=== PATIENT | female | born 1945 | race Caucasian/White ===

== ENCOUNTER 2019-03-14 09:47 | Inpatient (IN) ==
[2019-03-14] MEDS ORDERED: Albuterol 2.5 MG/3 ML NEBULIZER IH ONE (10:18)
[2019-03-14] MEDS ORDERED: CeFAZolin Syr 2,000MG/20 ML 2,000 MG/20 ML SYRINGE IVPB ONE (10:18)
[2019-03-14] MEDS ORDERED: diazePAM 5 MG TABLET PO ONE (10:29)
[2019-03-14] MEDS ORDERED: Pregabalin 75 MG CAPSULE PO ONE (10:30)
[2019-03-14] MEDS ORDERED: Ringers Solution, Lactated 1,000 ML IVC SCH ×2 (10:30→16:09)
[2019-03-14] MEDS ORDERED: Acetaminophen IV 1,000 MG/100 ML INFUS..BTL IVPB ONE (10:31)
[2019-03-14] MEDS ORDERED: Celecoxib 100 MG CAPSULE PO ONE (10:31)
--- NOTE | 2019-03-14 10:52 | Anesthesia Evaluation PreOp ---
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: Denies Any Significant HX Other Medical History: Other (Arthritis) Anesthesia History: No Prior Anesthetic Complications : No Alcohol Use: none Drug use: none Medications and Allergies Allergy/AdvReac Type Severity Reaction Status Date / Time tetracycline Allergy Itching Unverified 03/11/19 12:30 tramadol Allergy Gastrointestinal Unverified 03/11/19 12:30 Upset - Meds/Allergy Pre-op Review Medications Reviewed: Yes Allergies Reviewed: Yes Beta Blockers on Current Med List: No Anesthesia Results - Labs Laboratory Tests 02/26/19 02/26/19 10:41 10:41 Hgb 12.8 Hct 38.3 Plt Count 337 Sodium 139 Potassium 3.9 BUN 22 Creatinine 0.51 L - Imaging EKG: report reviewed (SR short AK) Anesthesia Exam O2 Sat Height 1.52 m Weight 49.895 kg O2 Sat by Pulse Oximetry 100 Vital Signs Temp Pulse Resp BP Pulse Ox 98.6 F 84 18 152/79 100 03/14/19 10:12 03/14/19 10:12 03/14/19 10:12 03/14/19 10:12 03/14/19 10:12 Height: 5'0 Weight: 110 lbs NPO (# of Hours): MN Pain Scale: 0 - HEENT Pupil (Motor): Pupils equal, EOMI Mallampati: II Denture Type: Upper: Complete (dentures) Oral Opening: Greater than 3 - 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
--- NOTE | 2019-03-14 11:53 | History & Physical Report ---
Date of Encounter: 03/14/19 Time of Encounter: 11:53 24 Hour HP Update - Instructions Instructions: If the History and Physical is less than 30 days old and was completed prior to A.M. admission and or procedure and has NOT been updated on calendar day of procedure please complete this update prior to performing procedure. - Update Patient reports changes in Medical Condition: No Changes in examination, assessment, or condition: No Changes in Medication: No Preop tests/diagnostics Reviewed: Yes Surgery Remains Indicated: Yes Consent for Planned Operative Procedure(s) Verified: Yes - Pre-Operative Checklist Preoperative Checklist Indicated: No Prophylactic Antibiotic Ordered: Yes Is VTE Prophylaxis Indicated?: Yes
--- NOTE | 2019-03-14 11:55 | Discharge Summary ---
Orders not resulted at time of discharge: Pending orders 03/14/19 11:54 XR hip complete RT [XR] Routine Hemoglobin and Hematocrit [HEME] Routine Date of Encounter: 03/22/19 Time of Encounter: 15:47 - Discharge Diagnosis (1) Hypertension Priority: Secondary Status: Chronic Qualifiers: Hypertension type: unspecified Qualified Code(s): I10 - Essential (primary) hypertension (2) Hyperlipidemia Priority: Secondary Status: Chronic Qualifiers: Hyperlipidemia type: unspecified Qualified Code(s): E78.5 - Hyperlipidemia, unspecified (3) Tobacco use Priority: Secondary Status: Chronic (4) Arthritis of right hip Priority: Primary Status: Chronic (5) Status post total hip replacement, right Priority: Primary Status: Acute - Hospital Course Hospital course: Ms. Higgins is a 74 year old female The patient had an uneventful postoperative course. They received antibiotics and physical therapy and were discharged in stable condition. There will follow-up in the office in 2 weeks. - Time Spent with Patient Total time spent providing and/or coordinating discharge services: - Discharge Medications Prescriptions: New Aspirin Enteric Coated [Aspirin EC] 162 mg PO BID #20 tablet.dr Elena Farrar Lisinopril [Zestril] 5 mg PO DAILY hydroCHLOROthiazide [Hydrochlorothiazide] 25 mg PO DAILY Sertraline [Zoloft] 25 mg PO DAILY Meloxicam 15 mg PO DAILY Home Medications: Aspirin Enteric Coated [Aspirin EC] 162 mg PO BID #20 tablet. 03/14/19 [Rx] Lisinopril [Zestril] 5 mg PO DAILY 03/14/19 [History] Meloxicam 15 mg PO DAILY 03/14/19 [History] Sertraline [Zoloft] 25 mg PO DAILY 03/14/19 [History] hydroCHLOROthiazide [Hydrochlorothiazide] 25 mg PO DAILY 03/14/19 [History] Allergies/Adverse Reactions: Allergy/AdvReac Type Severity Reaction Status Date / Time tetracycline AdvReac Itching Verified 03/14/19 17:40 tramadol AdvReac Gastrointestinal Verified 03/14/19 17:40 Upset Primary care physician: Latoya Sage MD - Patient Status Disposition: Home, Self-Care - Discharge Instructions Follow Up With: Latoya Sage MD [Primary Care Provider] - Additional Instructions: Discharge Instructions: Total Hip Replacement Please call [facility] ([phone]), your Primary Care Physician, or report to the Emergency Room if you have any of the following symptoms: Nausea, vomiting, fever greater that 101.5, swelling, chest pain, shortness of breath, increased pain/redness/drainage/odor for your incision site, numbness/tingling, or any other concerning symptoms. ACTIVITY:Weight-bearing as tolerated for 8 weeks with hip dislocation precautions that physical therapy taught you. You may progress as tolerated under the guidance of your physical therapist. You do not need to sleep with a pillow between your legs. You can also seep on the operative side or on your stomach. Incentive Spirometer 10 times an hour. MEDICATIONS: Upon discharge resume your home medications. Take all the medications as prescribed. Take a stool softener if taking narcotic pain medications. Stool softeners are only effective if you drink enough fluids. Drink 6-8 glass of water or fluids a day, unless this is not allowed for another health problem. Despite using stool softeners, if you haven't had a bowel movement in 3 days, please switch to a gentle laxative. Gentle laxatives are sold over the counter. You should have a bowel movement within 24 hours, if not call the office. You will be discharged from the hospital with a prescription for pain medication. You are encouraged to decrease the use of narcotic pain medication as tolerated. Should you require a refill, please call the office. [facility] prescribes narcotic pain medication for only 4-6 weeks after surgery. If you require pain medication beyond this time period, you may be referred to your Primary Care Physician or to the Pain Clinic for further evaluation. Plan ahead for refills on pain medication as many narcotics either need to be picked up at the office or mailed. It is best to call 48-72 hours in advance of needing a prescription refill so you don't run out of medication. To help control the post-operative pain, you may take NSAIDs (Aleve,Advil, Motrin, ibuprofen, naprosyn) or Tylenol as prescribed on the bottle in addition to the pain medication. ANTICOAGULATION (blood thinners): Continue your Aspirin, Lovenox or Coumadin as prescribed to help prevent a blood clot in the leg or in the lungs. As long as your incision remains dry and you tolerate the NSAIDs (Aleve, Advil, Motrin, Ibuprofen, Naprosyn), it is OK to use the NSAIDS while you are taking your anticoagulation medication. Should your incision start to drain, stop the NSAID and contact our office. Common symptoms of blood clot in the legs include: localized pain, swelling, calf tenderness, redness or discoloration of the skin. Blood clot in the lung symptoms include: shortness of breath, rapid pulse, sweating, and chest pain that worsens with deep breathing, coughing up blood, lightheadedness, feelings of anxiety. If you experience any of these symptoms notify your physician immediately, go to the emergency room, or if having trouble breathing, call 911. WOUND CARE: Leave the dressing on for 7 to 10days. You may change the dressing if it is saturated greater than 50%. Do not get the dressing wet at anytime. Wash your hands with antibacterial soap, rinse and dry prior to any wound care. If you have etelvina the visiting nurse or rehab facility can remove the stapes 10-14 days after surgery and place steri-strips across the wound. Leave the steri-strips in place until they fall off on their own. You may let water from the shower run on top of the steri-strips. If you do not have a visiting nurse or rehab facility, you will need to return to the office at 10-14 days for the etelvina to be removed. If you have itching or redness around the dressing call the office. FOLLOW-UP: Please follow up with your surgeon in the orthopedic clinic in 6 weeks from the day of surgery. If you have etelvina that need to be removed, you will need to come back to the office in 10-14 days from the day of surgery.
[2019-03-14] MEDS ORDERED: Ethanol\\Acetic Acid\\Na Ace\\Ben 1,000 ML IRRIG.SOLN IR ONE (12:02)
[2019-03-14] MEDS ORDERED: Lidocaine -MPF 4% 5 ML AMPUL ONE (12:12)
[2019-03-14] MEDS ORDERED: Ondansetron 4 MG/2 ML VIAL ONE (12:12)
[2019-03-14] MEDS ORDERED: Dexamethasone 4 MG/ML VIAL ONE (12:12)
[2019-03-14] MEDS ORDERED: Lidocaine -MPF 2% 2 ML VIAL ONE (12:12)
[2019-03-14] MEDS ORDERED: *HR* Midazolam HCl 2 MG/2 ML VIAL ONE (12:12)
[2019-03-14] MEDS ORDERED: *HR* FentaNYL (PF) 100 MCG/2 ML VIAL ONE (12:12)
[2019-03-14] MEDS ORDERED: Propofol 500 MG/50 ML INFUS..BTL ONE ×2 (12:12→12:15)
[2019-03-14] MEDS ORDERED: *HR* OxyCODONE Immed Rel 5 MG TABLET PO PRN (12:25)
[2019-03-14] MEDS ORDERED: Ondansetron 4 MG/2 ML VIAL IVP ONE (12:25)
[2019-03-14] MEDS ORDERED: *HR* Promethazine 25 MG/ML VIAL IVP PRN ×2 (12:25→16:09)
--- NOTE | 2019-03-14 13:14 | Anesthesia Procedures ---
Date of Encounter: 03/14/19 Time of Encounter: 14:45 Procedures: Anesthesia - Epidural/Spinal Patient ID/Chart reviewed: Yes Patient examined: Yes Consent Obtained: Yes Supplemental Oxygen: Nasal Cannula Supplemental Oxygen Rate (L/min): 2 Sedation: Versed (mg): 2 Sedation: Fentanyl (mcg): 100 Site Prep: Aseptic Technique, Sterile prep and drape, Povidone-Iodine 1% Patient position: upright Local Anesthetic: Lidocaine 1% Amount of Local Anesthetic used: 3 Interspace Used: L4-L5 Blood: No CSF: Yes (spinal ) Paresthesia: No Spinal Needle Gauge: 24 Spinal Dose: bupivicaine 0.5% PF Vitals + FHT's: Vital Signs - Last 8 Hours Temp Pulse Resp BP Pulse Ox 03/14/19 13:01 89 14 115/51 100 03/14/19 12:40 84 16 117/93 100 03/14/19 10:12 98.6 F 84 18 152/79 100 Intake and Output 03/13/19 03/14/19 03/14/19 23:59 07:59 15:59 Other: Weight 49.895 kg Patient Weight 03/14/19 23:59 Weight 49.895 kg
[2019-03-14] MEDS ORDERED: Tranexamic Acid 1,000 MG/10 ML VIAL ONE (13:42)
[2019-03-14] MEDS ORDERED: EPHEDrine 50 MG/ML VIAL ONE (14:10)
--- NOTE | 2019-03-14 15:07 | Orthopedic Operative Note ---
Date of procedure: 03/14/19 Pre-op diagnosis: Right hip arthritis Post-op diagnosis: same Procedure: Procedure: Right Total Hip Replacment robotic-assisted Estimated blood loss: 200 cc Hardware: Metal and polyethylene replacement. Christen DM Cup: 52 cup with 4 6.5 cancellus screws Femoral size 4 anteverted Anato stem Head:-4 head with Alivia Procedural Notes: Grade 4 arthritic changes femoral head acetabular socket, procedure performed with robotic assistance. Patient 3 mm short operative versus nonoperative leg is measured by preoperative CT scan. Operative procedure: The patient was brought to the operating room and placed on the operating room table. After general anesthesia was administered the patient was placed in the lateral decubitus position with the operative leg up. All pressure points were padded appropriately and the head was stabilized in the neutral position. The operative extremity was prepped and draped in the sterile surgical fashion patient received IV antibiotic prior to skin incision. 3 Steinmann pins were placed in the iliac crest 3 cm proximal to the anterior superior iliac spine this was for the robotic-assisted sensor. This was done through a small 2 cm incision. A standard posterior approach is made to the operative hip, the incision was made through the skin and subcutaneous tissue hemostasis was obtained with Bovie cautery. Using careful sharp dissection the fascia was identified and incised exposing the external rotators. The greater trochanter was marked, and length was measured at this time utilizing robotic assistance. The external rotators were released off the greater trochanter and tagged with #2 FiberWire suture. The capsule was T'd open and the hip was brought into internal rotation. Patient noted to have grade 4 arthritic changes femoral head. The femoral neck cut was made at the appropriate level roughly 15 mm proximal to the lesser trochanter aced on preoperative templating. An anterior capsulotomy was performed for the anterior retractor. Soft tissues removed from the acetabulum. Patient noted to have grade 4 arthritic changes acetabulum. The acetabulum reference point was confirmed. The acetabulum was then mapped with robotic assistance. Based on the preoperative plan the acetabulum was reamed in one step with a X reamer. The X acetabulum was impacted with robotic assistance and 38 degrees of abduction and 14 degrees of anteversion. Fixation was augmented with 4 6.5 short cancellus screws The hip was brought back in to internal rotation and prepared with the box liner followed by the canal finder followed by the reaming process to a size 12 broaching process in 20 degrees anteversion. It was broached up to the appropriate size 4 Trial reduction revealed leg lengths close to normal. The femoral implant was impacted in place in 20 degrees of anteversion. Trial reduction found the hip to be stable with -4 head and Alivia. The trials were removed and the real implants were impacted in place. The hip was reduced, pa tient had robotic confirmed leg length of 7 mm longer than the contralateral side. The hip had excellent stability with forward flexion to 90 degrees adduction of 30 degrees and internal rotation of 60 degrees. The hip had no shuck. The hip sat with an antibacterial solution. It was irrigated out with 2 L of pulse irrigation. The Steinmann pins were removed. The deep tissue was irrigated and closed deep with #1 PDS suture superficially with 0 PDS suture and skin was closed with Dermabond and zip tie. The patient was placed in a sterile dressing and abduction pillow. The patient was extubated and transferred to the recovery room in stable condition. Anesthesia: spinal Surgeon: Luis Dove Was there an entry level marketing assistant present: No Estimated blood loss (cc): 200 Condition: stable Disposition: PACU
[2019-03-14 15:45] LABS: Hematocrit 31.4 % (35.3-44.9); Hemoglobin 10.3 g/dL (11.5-15.4)
--- NOTE | 2019-03-14 16:08 | Anesthesia Evaluation Post Op ---
Date of Encounter: 03/14/19 Time of Encounter: 16:00 - Vital Signs Vital Signs: Vital Signs/O2 Sat/Glucose, Most Current Temp Pulse Resp BP Pulse Ox 03/14/19 15:54 97.4 F L 75 13 143/65 98 03/14/19 15:44 69 17 140/67 98 03/14/19 15:34 97.4 F L 72 15 132/64 99 03/14/19 15:24 69 12 128/61 100 03/14/19 15:14 71 16 110/68 97 03/14/19 15:04 97.8 F 93 14 119/82 100 03/14/19 13:30 76 104/52 100 03/14/19 13:15 77 111/51 100 03/14/19 13:01 89 14 115/51 100 03/14/19 12:40 84 16 117/93 100 - Lungs Lungs: Clear Ascult./Percussion - Airway Airway: Non-obstructed - Cardiovascular Regular Rate - Mental Status Mental Status: Alert & Oriented, Answers Appropriately - Pain Pain Scale: 0 - Nausea Vomiting Nausea Vomiting: Not Present - Hydration Hydration: Ice chips - Discharge PostOp Status: Transfer Patient to floor (Patient moving LE thigh)
[2019-03-14] MEDS ORDERED: MOM Conc 10 ML UD.LIQ PO PRN (16:09)
[2019-03-14] MEDS ORDERED: Naloxone 0.4 MG/ML INJ IVP PRN (16:09)
[2019-03-14] MEDS ORDERED: Sennosides 8.6 MG TABLET PO PRN (16:09)
[2019-03-14] MEDS ORDERED: HYDROcodone BIT/Homatropine 5 MG TABLET PO PRN (16:09)
[2019-03-14] MEDS ORDERED: Ondansetron 4 MG/2 ML VIAL IVP PRN (16:09)
[2019-03-14] MEDS ORDERED: *HR* Enoxaparin 30 MG/0.3 ML SYRINGE SQ SCH (18:00)
[2019-03-14] MEDS: Ascorbic Acid 500 MG TABLET PO SCH (18:29)
[2019-03-14] MEDS: *HR* Enoxaparin 30 MG/0.3 ML SYRINGE SQ SCH (18:29)
[2019-03-14] MEDS: *HR* OxyCODONE Immed Rel 5 MG TABLET PO PRN (20:34)
[2019-03-14] MEDS: Temazepam 15 MG CAPSULE PO PRN (23:12)
[2019-03-15 02:38] LABS: Basophils % 0.2 %; Hematocrit 28.2 % (35.3-44.9); Hemoglobin 9.4 g/dL (11.5-15.4); Immature Granulocytes % 0.3 % (0-4); Lymphocytes # 0.8 K/mcL (0.6-4.6); Lymphocytes % 7.3 %; Mean Corpuscular HGB Conc 33.3 g/dL (31.6-35.5); Mean Corpuscular Hemoglobin 30.9 pg (28.0-33.3); Mean Corpuscular Volume 92.8 fL (83.0-100.0); Mean Platelet Volume 9.3 fL (9.4-12.4); Monocytes # 0.6 K/mcL (0.0-1.3); Monocytes % 5.8 %; Neutrophils # 9.1 K/mcL (1.6-8.9); Platelet Count 314 K/mcL (140-400); Red Blood Count 3.04 M/mcL (3.82-4.97); Red Cell Distribution Width 12.7 % (11.5-14.5); Segmented Neutrophils % 86.4 %
[2019-03-15 02:44] LABS: BUN/Creatinine Ratio 31 (6-26); Blood Urea Nitrogen 23 mg/dL (8-23); Calcium 8.4 mg/dL (8.6-10.3); Carbon Dioxide 24 mEq/L (23-29); Chloride 108 mEq/L (98-107); Glucose 146 mg/dL (70-105); Osmolality,Calculated 298 (280-300); Sodium 141 mEq/L (136-145); eGFR For Non-African Americans > 60 (> 60)
[2019-03-15] MEDS: *HR* Enoxaparin 30 MG/0.3 ML SYRINGE SQ SCH ×2 (04:51→17:21)
[2019-03-15] MEDS: *HR* OxyCODONE Immed Rel 5 MG TABLET PO PRN ×3 (04:51→17:24)
--- NOTE | 2019-03-15 09:18 | Orthopedics Progress Note ---
Date of Encounter: 03/15/19 Time of Encounter: 09:18 - Assessment and Plan (1) Hypertension Current Visit: Yes Status: Chronic Qualifiers: Hypertension type: unspecified Qualified Code(s): I10 - Essential (primary) hypertension (2) Hyperlipidemia Current Visit: Yes Status: Chronic Qualifiers: Hyperlipidemia type: unspecified Qualified Code(s): E78.5 - Hyperlipidemia, unspecified (3) Tobacco use Current Visit: Yes Status: Chronic (4) Arthritis of right hip Current Visit: Yes Status: Chronic (5) Status post total hip replacement, right Current Visit: Yes Status: Acute (6) Acute blood loss anemia Current Visit: Yes Status: Acute Subjective Interval history: Patient was seen this morning doing well without complaints. Afebrile vital signs stable. Operative extremity: Neurovascularly intact Dressing clean dry and intact Calves nontender Assessment and plan: Continue with postoperative care Hemoglobin 9.4 Objective Vital signs: Vital Signs Temp Pulse Pulse Resp BP Pulse Ox 03/15/19 06:29 98.2 F 71 16 105/57 96 03/15/19 03:58 98.4 F 65 18 103/51 97 03/15/19 00:09 98.2 F 96 18 131/72 97 03/14/19 20:11 107 03/14/19 19:57 107 03/14/19 19:49 98.0 F 117 17 154/61 92 03/14/19 16:20 77 16 134/68 95 03/14/19 15:54 97.4 F L 75 13 143/65 98 03/14/19 15:44 69 17 140/67 98 03/14/19 15:34 97.4 F L 72 15 132/64 99 03/14/19 15:24 69 12 128/61 100 03/14/19 15:14 71 16 110/68 97 03/14/19 15:04 97.8 F 93 14 119/82 100 03/14/19 13:30 76 104/52 100 03/14/19 13:15 77 111/51 100 03/14/19 13:01 89 14 115/51 100 03/14/19 12:40 84 16 117/93 100 03/14/19 10:12 98.6 F 84 18 152/79 100 Intake and Output 03/14/19 03/15/19 03/15/19 23:59 07:59 15:59 Intake Total 150 / 170 100 / 100 Output Total 820 / 1020 Balance -670 / -850 100 / 100 Intake: IV Fluids 100 / 100 Ancef 2,000 MG In 0.9 % Sodium 100 / 100 Chloride 100 ML @ 200 mls/hr IVPB Q8H [facility] Rx#:[id number] Oral 150 / 150 Output: Urine 820 / 820 Other: # Voids 1 Weight 57 kg Patient Weight 03/15/19 23:59 Weight 57 kg - Labs CBC & BMP: 03/15/19 01:38 03/15/19 01:38 Labs: Abnormal lab results RBC 3.04 M/mcL (3.82-4.97) L 03/15/19 01:38 Hgb 9.4 g/dL (11.5-15.4) L 03/15/19 01:38 Hct 28.2 % (35.3-44.9) L 03/15/19 01:38 MPV 9.3 fL (9.4-12.4) L 03/15/19 01:38 9.1 K/mcL (1.6-8.9) H 03/15/19 01:38 Chloride 108 mEq/L (98-107) H 03/15/19 01:38 31 (6-26) H 03/15/19 01:38 Glucose 146 mg/dL (70-105) H 03/15/19 01:38 Calcium 8.4 mg/dL (8.6-10.3) L 03/15/19 01:38 Consult Discharge Plan - Plan Referrals: Latoya Sage MD [Primary Care Provider] -
[2019-03-15] MEDS: Multivit/Ca/Min/Fe/FA 1 TAB TABLET PO SCH (10:14)
[2019-03-15] MEDS: Ascorbic Acid 500 MG TABLET PO SCH ×2 (10:14→17:21)
[2019-03-15] MEDS: hydroCHLOROthiazide 25 MG TABLET PO SCH (10:14)
[2019-03-15] MEDS: Celecoxib 200 MG CAPSULE PO SCH (10:15)
--- NOTE | 2019-03-15 16:29 | Physician Discharge Referral ---
ExtendedCare Referral Info Transfer To: [facility] Provider in Charge: Dr. Luis Dove - Diagnosis (1) Status post total hip replacement, right Priority: Primary Status: Acute (2) Arthritis of right hip Priority: Primary Status: Chronic (3) Hyperlipidemia Priority: Secondary Status: Chronic (4) Hypertension Priority: Secondary Status: Chronic (5) Tobacco use Priority: Secondary Status: Chronic Expected Duration of Placement: less than 30 days Prognosis: Good Aware of Diagnosis: Patient Aware of Prognosis: Patient - Transfer Medications Home Medications: Aspirin Enteric Coated [Aspirin EC] 162 mg PO BID #20 tablet. 03/14/19 [Rx] Lisinopril [Zestril] 5 mg PO DAILY 03/14/19 [History] Meloxicam 15 mg PO DAILY 03/14/19 [History] OxyCODONE Immed Rel [Roxicodone 5 MG] 5 mg PO Q6HR PRN 5 Days #20 tablet 03/14/19 [Rx] Sertraline [Zoloft] 25 mg PO DAILY 03/14/19 [History] hydroCHLOROthiazide [Hydrochlorothiazide] 25 mg PO DAILY 03/14/19 [History] Allergies/Adverse Reactions: Allergy/AdvReac Type Severity Reaction Status Date / Time tetracycline AdvReac Itching Verified 03/14/19 17:40 tramadol AdvReac Gastrointestinal Verified 03/14/19 17:40 Upset - Respiratory Orders Smoking Cessation: Smoking cessation has been advised. For more information, call the [place] Tobacco Quit Line at 1-166-GHNB-NOW. - Ancillary Orders May use pressure relief devices daily prn, May go on ALEX w/family/respon democrat w/meds at nurse discretion PRN, May consult with Dentist, Supervisor Finishing Department, Neuroradiologist PRN - Mobility Orders Chair, Ambulate - Rehabiliation Orders Rehab Potential: Good Rehab Orders: Evaluation for Physical Therapy, Evaluation for Occupational Therapy Other: Total Hip replacement Precautions Apply cold therapy 3-6x/day for 20 minutes at a time. Encourage ambulation throughout the day and incentive spirometer 10x/hour. Elevate affected extremity as tolerated. Brace: Wear hip abduction pillow when laying/sleeping - Treatments Skin tear care topically daily PRN per policy List/Other: Opsite placed. Keep dressing intact until first follow up appointment. If greater than 50% saturated, notify office, remove dressing and place appropriate dressing back in place. Leave Zipline intact. Opsite dressing is water resistant, not water-proof. OK to shower, but do not get dressing wet. - Diet Orders Regular CERTIFICATION: I certify that the transfer of the above named patient to an Extended Care Facility is necessary for the continuing treatment of the diagnosis listed. The above information is true and accurate reflection of patient's current condition. Confidential - Redisclosure prohibited without a patient's written consent.
--- NOTE | 2019-03-15 16:29 | Physician Discharge Referral ---
Home Health/Hosp Referral Info Transfer to: Home Health Attending Provider: Dr. Luis Dove - Diagnosis (1) Status post total hip replacement, right Priority: Primary Status: Acute (2) Arthritis of right hip Priority: Primary Status: Chronic (3) Hyperlipidemia Priority: Secondary Status: Chronic (4) Hypertension Priority: Secondary Status: Chronic (5) Tobacco use Priority: Secondary Status: Chronic - Respiratory Orders Smoking Cessation: Smoking cessation has been advised. For more information, call the [place] Tobacco Quit Line at 1-887-BTRR-NOW. - Dressing/Wound Care Site: right hip Type of Dressing/Treatments w/Frequency: Opsite placed. Keep dressing intact until first follow up appointment. If greater than 50% saturated, notify office, remove dressing and place appropriate dressing back in place. Leave Zipline intact. Opsite dressing is water resistant, not water-proof. OK to shower, but do not get dressing wet. - Diet/Nutrition Diet/Nutrition Orders: Regular - Activity Activity Orders: Up ad emily, Ambulate, Chair, Walker - Services Needed Following services are medically necessary services: Nursing, Home Health Aide, Physical Therapy, Occupational Therapy, Med Social Work Home Care Orders: Total Hip replacement Precautions Apply cold therapy 3-6x/day for 20 minutes at a time. Encourage ambulation throughout the day and incentive spirometer 10x/hour. Elevate affected extremity as tolerated. Brace: Wear hip abduction pillow when laying/sleeping - Transfer Medications Home Medications: Aspirin Enteric Coated [Aspirin EC] 162 mg PO BID #20 tablet. 03/14/19 [Rx] Lisinopril [Zestril] 5 mg PO DAILY 03/14/19 [History] Meloxicam 15 mg PO DAILY 03/14/19 [History] OxyCODONE Immed Rel [Roxicodone 5 MG] 5 mg PO Q6HR PRN 5 Days #20 tablet 03/14/19 [Rx] Sertraline [Zoloft] 25 mg PO DAILY 03/14/19 [History] hydroCHLOROthiazide [Hydrochlorothiazide] 25 mg PO DAILY 03/14/19 [History] Allergies/Adverse Reactions: Allergy/AdvReac Type Severity Reaction Status Date / Time tetracycline AdvReac Itching Verified 03/14/19 17:40 tramadol AdvReac Gastrointestinal Verified 03/14/19 17:40 Upset Certification: Further, I certify that my clinical findings support that this patient is homebound (i.e. absences from home require considerable and taxing effort and are for medical reasons or voodoo services or infrequently or short duration when for other reasons) because: Homebound Reason: Post-surgery restriction and or conditions limit ability to leave home Attestation: My signature below is to certify that this patient is under my care and that I, or nurse practitioner, or a physician's broker assistant working with me, has a [id number] encounter with this patient.
--- NOTE | 2019-03-15 16:58 | Event Note ---
Date of Encounter: 03/15/19 Time of Encounter: 16:00 Date of procedure: 03/14/19 Pre-op diagnosis: Right hip arthritis Post-op diagnosis: same Procedure: Right Total Hip Replacment robotic-assisted POD#1 Patient seen at bedside. A&Ox3 Dressing and incision c/d/i No calf tenderness, erythema, or warmth. Neurovascularly intact b/l LE. Labwork, vitals, and medications reviewed. Pain control: Adequate Participating in PT. All questions and concerns addressed. Educated on use of incentive spirometer, ambulation, and hydration. Patient educated on post-operative restrictions and care. Addressed: Therapy recommending inpt rehab - patient adamant she wants to go home. Per therapy she is not following directions regarding hip precautions. Await reevaluation for final recommendations. Patient encouraged to participate with therapy. D/C plan: awaiting therapy reevaluation.
[2019-03-15] MEDS: Temazepam 15 MG CAPSULE PO PRN (21:06)
[2019-03-16 04:25] LABS: Basophils % 0.3 %; Eosinophils # 0.1 K/mcL (0.0-0.6); Eosinophils % 1.7 %; Hematocrit 25.6 % (35.3-44.9); Hemoglobin 8.4 g/dL (11.5-15.4); Immature Granulocytes % 0.3 % (0-4); Lymphocytes # 1.5 K/mcL (0.6-4.6); Lymphocytes % 26.2 %; Mean Corpuscular HGB Conc 32.8 g/dL (31.6-35.5); Mean Corpuscular Hemoglobin 31.2 pg (28.0-33.3); Mean Corpuscular Volume 95.2 fL (83.0-100.0); Mean Platelet Volume 9.3 fL (9.4-12.4); Monocytes # 0.4 K/mcL (0.0-1.3); Monocytes % 7.3 %; Neutrophils # 3.7 K/mcL (1.6-8.9); Platelet Count 279 K/mcL (140-400); Red Blood Count 2.69 M/mcL (3.82-4.97); Red Cell Distribution Width 13.2 % (11.5-14.5); Segmented Neutrophils % 64.2 %
[2019-03-16 04:47] LABS: BUN/Creatinine Ratio 38 (6-26); Blood Urea Nitrogen 28 mg/dL (8-23); Calcium 8.4 mg/dL (8.6-10.3); Carbon Dioxide 27 mEq/L (23-29); Chloride 110 mEq/L (98-107); Glucose 99 mg/dL (70-105); Osmolality,Calculated 296 (280-300); Potassium 3.9 mEq/L (3.5-5.1); Sodium 140 mEq/L (136-145); eGFR For Non-African Americans > 60 (> 60)
[2019-03-16] MEDS: *HR* Enoxaparin 30 MG/0.3 ML SYRINGE SQ SCH ×2 (06:20→16:35)
[2019-03-16] MEDS: Multivit/Ca/Min/Fe/FA 1 TAB TABLET PO SCH (08:42)
[2019-03-16] MEDS: Ascorbic Acid 500 MG TABLET PO SCH ×2 (08:42→16:35)
[2019-03-16] MEDS: hydroCHLOROthiazide 25 MG TABLET PO SCH (08:42)
[2019-03-16] MEDS: Celecoxib 200 MG CAPSULE PO SCH (08:42)
[2019-03-16] MEDS: *HR* OxyCODONE Immed Rel 5 MG TABLET PO PRN ×2 (08:44→19:53)
--- NOTE | 2019-03-16 09:06 | Orthopedics Progress Note ---
Date of Encounter: 03/16/19 Time of Encounter: 09:05 Subjective Interval history: S: Patient is seen today and has no complaints. O: Afebrile and vital signs are stable Operative extremity dressing is clean, dry, and intact. Neurovascularly intact distally A: Right total hip arthroplasty P: Resume postoperative care Objective Vital signs: Vital Signs Temp Pulse Pulse Resp BP Pulse Ox 03/16/19 06:42 98.8 F 84 16 129/69 95 03/16/19 04:11 98.2 F 82 16 108/54 96 03/16/19 01:10 80 03/15/19 23:52 98.4 F 86 16 101/53 96 03/15/19 19:55 97.9 F 84 18 101/54 97 03/15/19 14:24 98.2 F 88 18 128/74 96 03/15/19 12:55 98.5 F 84 20 132/66 97 03/15/19 10:13 93 122/63 Intake and Output 03/15/19 03/16/19 03/16/19 23:59 07:59 15:59 Intake Total 250 / 250 Balance 250 / 250 Intake: Oral 250 / 250 Other: # Voids 1 1 Weight 58.6 kg Patient Weight 03/16/19 23:59 Weight 58.6 kg - Labs CBC & BMP: 03/16/19 03:14 03/16/19 03:14 Labs: Abnormal lab results RBC 2.69 M/mcL (3.82-4.97) L 03/16/19 03:14 Hgb 8.4 g/dL (11.5-15.4) L 03/16/19 03:14 Hct 25.6 % (35.3-44.9) L 03/16/19 03:14 MPV 9.3 fL (9.4-12.4) L 03/16/19 03:14 9.1 K/mcL (1.6-8.9) H 03/15/19 01:38 Chloride 110 mEq/L (98-107) H 03/16/19 03:14 BUN 28 mg/dL (8-23) H 03/16/19 03:14 38 (6-26) H 03/16/19 03:14 Glucose 146 mg/dL (70-105) H 03/15/19 01:38 Calcium 8.4 mg/dL (8.6-10.3) L 03/16/19 03:14 Consult Discharge Plan - Plan Referrals: Latoya Sage MD [Primary Care Provider] -
[2019-03-16] MEDS: Temazepam 15 MG CAPSULE PO PRN (19:53)
[2019-03-17] MEDS: *HR* OxyCODONE Immed Rel 5 MG TABLET PO PRN ×2 (02:28→07:33)
[2019-03-17] MEDS: *HR* Enoxaparin 30 MG/0.3 ML SYRINGE SQ SCH (05:44)
[2019-03-17] MEDS: hydroCHLOROthiazide 25 MG TABLET PO SCH (07:19)
[2019-03-17] MEDS: Celecoxib 200 MG CAPSULE PO SCH (07:22)
[2019-03-17] MEDS: Multivit/Ca/Min/Fe/FA 1 TAB TABLET PO SCH (07:23)
[2019-03-17] MEDS: Ascorbic Acid 500 MG TABLET PO SCH (07:23)
--- NOTE | 2019-03-17 08:05 | Orthopedics Progress Note ---
Date of Encounter: 03/17/19 Time of Encounter: 08:04 Subjective Interval history: S: Patient is seen today and has no complaints. O: Afebrile and vital signs are stable Operative extremity dressing is clean, dry, and intact. Neurovascularly intact distally A: Right total hip arthroplasty P: Resume postoperative care Patient declining SNF Home with HH when arranged Objective Vital signs: Vital Signs Temp Pulse Pulse Resp BP Pulse Ox 03/17/19 07:40 98.2 F 87 15 125/65 94 03/17/19 04:26 98.3 F 90 16 108/53 96 03/16/19 23:17 97.9 F 89 16 112/64 95 03/16/19 19:55 84 03/16/19 19:47 98.6 F 84 14 136/74 93 03/16/19 15:43 99.1 F 92 15 106/62 96 03/16/19 10:41 98.5 F 93 15 100/59 96 Intake and Output 03/16/19 03/17/19 03/17/19 23:59 07:59 15:59 Intake Total 150 / 880 Balance 150 / 880 Intake: Oral 150 / 880 Other: Meal Dinner Percent of Meal Consumed 75% # Voids 1 1 # Bowel Movements 1 Weight 58.9 kg Patient Weight 03/17/19 23:59 Weight 58.9 kg - Labs CBC & BMP: 03/16/19 03:14 03/16/19 03:14 Labs: Abnormal lab results RBC 2.69 M/mcL (3.82-4.97) L 03/16/19 03:14 Hgb 8.4 g/dL (11.5-15.4) L 03/16/19 03:14 Hct 25.6 % (35.3-44.9) L 03/16/19 03:14 MPV 9.3 fL (9.4-12.4) L 03/16/19 03:14 9.1 K/mcL (1.6-8.9) H 03/15/19 01:38 Chloride 110 mEq/L (98-107) H 03/16/19 03:14 BUN 28 mg/dL (8-23) H 03/16/19 03:14 38 (6-26) H 03/16/19 03:14 Glucose 146 mg/dL (70-105) H 03/15/19 01:38 Calcium 8.4 mg/dL (8.6-10.3) L 03/16/19 03:14 Consult Discharge Plan - Plan Referrals: Latoya aSge MD [Primary Care Provider] -
[2019-03-17 10:21] VITALS: BP 110/49
== END 2019-03-17 13:45 | disposition home or self-care (01) | DRG 470 ==
LOC: SAMDAY 09:47 → 3NENU 16:56
PROVIDERS: ADMIT Orthopaedic Surgery; ATTEND Orthopaedic Surgery